=== PATIENT | male | born 1960 | race Caucasian/White ===

== ENCOUNTER 2017-07-05 11:47 | Observation (INO) | payer MEDICARE, OTHER, MEDICAID ==
[~2017-07-05] VITALS: Ht 170.2 cm; Wt 100.2 kg
[~2017-07-05 11:47] MED LIST: ANTIBIOTIC
[2017-07-05] MEDS ORDERED: CIPRO500 MG PO (12:00)
[2017-07-05] MEDS ORDERED: FIBER CHOICE C1.5 G1 PO (12:01)
[2017-07-05 12:59] VITALS: BP 102/70
[2017-07-05] MEDS ORDERED: HYDROCODONE-AP1 EAC6 PO (18:01)
[2017-07-05 18:12] VITALS: BP 102/70
--- NOTE | 2017-07-05 20:11 | OP ---
[facility] [address] [place] [address] OPERATIVE REPORT Name: SANG NORMAN Room: [address] M.R.#: [id number] Admission: 07/05/17 Attend Phys: Gwen Queen MD Discharge: Date of : 58 Report #: [id number] THIS REPORT FOR: //name// CC: Gwen Carrizales MD DATE OF SERVICE: 07/05/2017 PREOPERATIVE DIAGNOSIS: Anal polyp. POSTOPERATIVE DIAGNOSIS: Anal polyp. PROCEDURES: 1. Pouchoscopy. 2. Transanal resection of anal polyp. SURGEON: Gwen Queen M.D. PRODUCTION SUPERVISOR: Hero Sandy DO ESTIMATED BLOOD LOSS: 10 mL COMPLICATIONS: None. FINDINGS: Inflammatory polyp at the left posterolateral location at the level of the dentate, 2 cm in size, long stitch left lateral, short stitch proximal. DESCRIPTION OF PROCEDURE: Full informed consent was obtained preoperatively after full discussion of risks, benefits, alternatives, questions answered. The patient understood risk of bleeding, infection, reoperation, fecal incontinence or stenosis, pouch injury or disruption with leak requiring laparotomy or stoma pathology, which could lead to a need for resection and catastrophic complications up to including cardiopulmonary failure and . She understood and wished to proceed. She was taken to the operating room. We prepped and draped in standard sterile fashion. We began with an examination under anesthesia palpating circumferentially and performed a digital rectal exam and a polyp was palpable at left posterior lateral location. Flexible endoscope was advanced in the rectum. I gently insufflated, I came up. Of note, there was significant inflammatory mucosa circumferentially, only lesion previously noted by Dr. Carrizales was noted. I advanced up to the proximal aspect of the pouch. I viewed the afferent and efferent limb and pulled back. Next, I withdrew my scope. I next placed very small anoscope, viewed the polyp in its entirety and injected 0.5% lidocaine with epinephrine. I made a small wheal. I used cautery to achieve margins around it coming down just above [place] [address] OPERATIVE REPORT Name: SANG NORMAN Room: [address]R.#: [id number] Admission: 07/05/17 Attend Phys: Gwen Queen MD Discharge: Date of : 58 Report #: [id number] sphincter would be. This was resected to be sent to pathology, long stitch was placed with lateral, short stitch proximal. I used 3-0 Vicryl to reapproximate the mucosa into the skin. After this, I made sure it was hemostatic, placed Gelfoam. Sponge, needle, instrument counts were correct. The patient tolerated well. <ELECTRONICALLY SIGNED> By: Gwen Queen MD 07/05/172010 12 1851Dleticia Queen MD /maylin
[2017-07-05 21:00] VITALS: BP 108/72
[2017-07-05 23:55] VITALS: BP 102/68
[2017-07-06 03:38] VITALS: BP 104/70
[2017-07-06 04:39] LABS: ABSOLUTE EOSINOPHILS 0.2 thou/uL (0.0-0.7); ABSOLUTE LYMPHOCYTES 1.1 thou/uL (0.8-5.3); ABSOLUTE MONOCYTES 0.6 thou/uL (0.0-1.2); ABSOLUTE NEUTROPHILS 2.9 thou/uL (1.6-8.1); BASOPHILS 0.8 %; EOSINOPHILS 4.7 %; HEMATOCRIT 35.2 % (42.0-52.0); HEMOGLOBIN 11.5 gm/dL (14.0-18.0); LYMPHOCYTES 22.2 %; MCH 26.9 pg (26.0-34.0); MCHC 32.6 g/dL (28.0-37.0); MCV 82.3 fL (80.0-100.0); MONOCYTES 12.6 %; MPV 9.5 fl. (7.2-11.1); NUCLEATED RBCS 0 /100WBC; PLATELET COUNT* 140 thou/uL (150-400); POLYS 59.7 %; RBC 4.28 mil/uL (4.50-6.00); RDW-CV 16.6 % (10.5-14.5); WBC 4.9 thou/uL (4.0-11.0)
[2017-07-06 04:40] LABS: CALCIUM 8.4 mg/dL (8.5-10.1)
[2017-07-06 07:45] VITALS: BP 111/57
--- NOTE | 2017-07-06 07:57 | NUR ---
PATIENT ALERT AND ORIENTED. VITALS STABLE. ON 4L OF OXYGEN. CONTINUOUS PULSE OX IN PLACE. DENIES PAIN. SCHEDULED TORADOL GIVEN. UP SBA TO BATHROOM. RECTAL DRESSING AND PACKING IN PLACE. SLEPT COMFORTABLY THROUGH THE NIGHT. DENIES ANY DISCOMFORT. HOURLY ROUNDS. BED ALARM IN USE. NURSING WILL CONTINUE TO MONITOR.
[2017-07-06 11:58] VITALS: BP 111/57
--- NOTE | 2017-07-06 12:00 | NUR ---
PT.TO DISCHARGE TODAY. HE LIVES WITH HIS FATHER AND BROTHER. FATHER IS LEGAL GUARDIAN. PAPERWORK ON CHART. FATHER IS HARD OF HEARING SO HE ASKS THAT ANY PHONE CALLS ARE MADE TO BROTHNIKOLAY BABCOCK. HIS MOTHER IS IN LTC AT [facility]. PT.FUNCTIONS ON APPROX.LEVEL OF 7 YEAR OLD. KRISTINA JONES/[facility] CAME TO VISIT PT. HE SAID 'S OFFICE SENT THEM HOME HEALTH ORDERS. NOTIFIED MAT/EDEL [phone] AND FAXED DISCHARGE SUMMARY AND BROTHNIKOLAY BABCOCK'S PHONE NUMBER TO HER AT [phone].
[2017-07-06 12:26] VITALS: BP 111/57
--- NOTE | 2017-07-06 13:03 | NUR ---
PATIENT LEFT UNIT AT 1300. ALERT AND ORIENED X4. UP WITH STAND BY ASSST TO THE BATHROOM. IV DC'D. PAIN BEING MANAGED WITH SCHEDULED TORDOL. DENIES NAUSEA. ALL PERSONAL ITEMS LEFT WITH PATIENT. DISCHARGE INSTRUCTIONS, PRESCRIPTIONS, AND NEW MEDICATION INFORMATION WENT OVER AND COPY SENT WITH PATIENT AND BROTHER. VSS ON ROOM AIR. HOURLY ROUNDS HAVE BEEN MAINTAINED THROUGHOUT SHIFT. LEFT WITH BROTHER VIA CAR.
[2017-07-06 13:18] VITALS: BP 111/57
--- NOTE | 2017-07-09 10:15 | S ---
[place] [address] SURGICAL PATH RPT PROCEDURE Name: OLIVER NORMAN Room: [address] Douglas Alexander#: [id number] Admission: 07/05/17 Date of : 58 Discharge: 07/06/17 Report #: [id number] Path Case #: [id number] PATHOLOGY REPORT COLLECTION DATE: 07/05/2017 RECEIVED DATE: 07/05/2017 SUBMITTING PHYS: Dr. Gwen Queen OTHER PHYS: Dr. Swati Carrizales SPECIMEN(S) RECEIVED: A.Rectal polyp "long suture left lateral short proximal" * * * * * * * * * * * * FINAL DIAGNOSIS: Rectal polyp: - Benign skin and colonic mucosa with prominent pyloric gland metaplasia and moderate chronic inflammation typical of inflammatory polyp, negative for granulomas and dysplasia/adenomatous changes. (SAUD:monique; 07/09/2017) PATHOLOGIST: Roe Lane M.D. REPORT ELECTRONICALLY SIGNED BY: Roe Lane M.D. DATE/TIME: 07/09/2017 10:15 * * * * * * * * * * * * GROSS PATHOLOGY: The specimen is received in formalin labeled "Oliver Norman rectal polyp". Received is an oriented segment of pink-tapia, glistening mucosal-covered tissue measuring 1.9 x 1.3 x 0.9 cm in greatest dimensions with a short suture placed at one aspect designating this as the proximal aspect, which will further be designated as 12:00 margin, and a long suture placed along one edge designating this as the lateral aspect, which will further be designated as the 3:00 margin. The specimen is inked as follows: 12 to 3:00-yellow, 3 to 6:00-blue, and 6 to 12:00-black. The specimen is serially sectioned and placed in cassettes A1 through A3, from 12 to 6:00 aspects. (CAA; 07/06/2017) CLINICAL HISTORY: Inflammatory polyp of anus, ileal pouchitis INITIAL CPT CODE(S): A; 95970 Professional services [place] [address] SURGICAL PATH RPT PROCEDURE Name: OLIVER NORMAN Room: [address] Douglas Zuleta.#: [id number] Admission: 07/05/17 Date of : 58 Discharge: 07/06/17 Report #: [id number] Path Case #: [id number] [address] [place] [address] Technical services performed by [facility] at [address] [place] [address], [facility] [address] [address]. [facility] [address] [place] [address] PHONE: [phone] DIRECTOR: Kiel Farrell M.D. * * * END OF REPORT * * *
== END 2017-07-06 13:00 | disposition home health service (06) ==
LOC: M.SUR 11:47 → M.TBA-ER 19:25 → M.ORTHSURG 19:25
PROVIDERS: ADMIT Surgery
DX: K62.0 Anal polyp (principal); K91.850 Pouchitis

== ENCOUNTER 2017-08-29 19:42 | Inpatient (IN) | payer MEDICARE, OTHER, MEDICAID ==
[~2017-08-29] VITALS: Ht 170.2 cm; Wt 102.1 kg
[~2017-08-29 19:42] MED LIST changes: +CIPRO500 MG PO; +FIBER CHOICE C1.5 G1 PO; +HYDROCODONE-AP1 EAC6 PO
[2017-08-29 20:15] LABS: ABSOLUTE EOSINOPHILS 0.3 thou/uL (0.0-0.7); ABSOLUTE LYMPHOCYTES 1.1 thou/uL (0.8-5.3); ABSOLUTE MONOCYTES 0.6 thou/uL (0.0-1.2); ABSOLUTE NEUTROPHILS 2.7 thou/uL (1.6-8.1); BASOPHILS 0.4 %; EOSINOPHILS 6.7 %; HEMATOCRIT 38.5 % (42.0-52.0); HEMOGLOBIN 12.6 gm/dL (14.0-18.0); LYMPHOCYTES 23.1 %; MCHC 32.6 g/dL (28.0-37.0); MCV 82.9 fL (80.0-100.0); MONOCYTES 12.1 %; MPV 8.9 fl. (7.2-11.1); NUCLEATED RBCS 0 /100WBC; PLATELET COUNT* 140 thou/uL (150-400); POLYS 57.7 %; RBC 4.64 mil/uL (4.50-6.00); RDW-CV 17.2 % (10.5-14.5); WBC 4.8 thou/uL (4.0-11.0)
[2017-08-29 20:18] LABS: ANION GAP 7 mmol/L (7-16); BUN 13 mg/dL (7-18); CALCIUM 8.5 mg/dL (8.5-10.1); CHLORIDE 105 mmol/L (98-107); CO2 28 mmol/L (21-32); CREATININE 1.1 mg/dL (0.6-1.3); GLUCOSE 139 mg/dL (70-99); POTASSIUM 4.3 mmol/L (3.5-5.1); SODIUM 140 mmol/L (136-145)
[2017-08-29 20:34] LABS: ALBUMIN 3.5 g/dL (3.4-5.0); ALKALINE PHOSPHATASE 127 U/L (46-116); NT-PRO BRAIN NAT PEPTIDE 280 pg/mL (<300); SGOT 25 U/L (15-37); SGPT 29 U/L (30-65); TOTAL BILIRUBIN 0.5 mg/dL (<0.1-1.0); TOTAL PROTEIN 7.6 g/dL (6.4-8.2); TROPONIN-I LEVEL <0.06 ng/mL (<0.06)
[2017-08-29 22:02] LABS: HCO3 23.7 mmol/L (22.0-26.0); PCO2 39.4 mmHg (35.0-45.0); PO2 76.9 mmHg (75.0-100.0); pH 7.397 (7.340-7.450)
[2017-08-29 23:00] LABS: INFLUENZA A ANTIGEN None Detected (None Detect); INFLUENZA B ANTIGEN None Detected (None Detect)
[2017-08-30 04:00] VITALS: BP 126/80
[2017-08-30 04:57] LABS: HEMATOCRIT 36.8 % (42.0-52.0); HEMOGLOBIN 12.2 gm/dL (14.0-18.0); MCH 27.1 pg (26.0-34.0); MCHC 33.1 g/dL (28.0-37.0); MCV 81.8 fL (80.0-100.0); MPV 8.9 fl. (7.2-11.1); RBC 4.51 mil/uL (4.50-6.00); RDW-CV 16.7 % (10.5-14.5)
--- NOTE | 2017-08-30 05:10 | NUR ---
PT TO FLOOR 0145. A&O X4, PT HAS GAURDIAN, PT HAS CRACKES ON PALM OF FEET. REPORTED THAT PT HAS COGNITIVE ISSUES AND DEVELPMENTLY SLOW (AGE 10-12). 6L O2. PT IS STAND BY ASSIST. HX FALLS. PT WHERES PULL UP AND IS CONTENT. VITALS WNL. SEE MAR. SEE CHARTING. FALL PRECATUIONS IN PLACE. HOURLY ROUNDING FOR SAFETY.
[2017-08-30 05:54] LABS: ALBUMIN 3.5 g/dL (3.4-5.0); CALCIUM 8.7 mg/dL (8.5-10.1); POTASSIUM 4.6 mmol/L (3.5-5.1); TOTAL BILIRUBIN 0.5 mg/dL (<0.1-1.0); TOTAL PROTEIN 7.1 g/dL (6.4-8.2)
[2017-08-30 07:45] VITALS: BP 135/65
[2017-08-30 11:54] VITALS: BP 131/73
--- NOTE | 2017-08-30 15:25 | EKG ---
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 : 1960 Requested By: Albin Yanez Order Number: [id number] Reading MD: Max Dang Measurements Intervals [place] Rate: 82 P: -3 MS: 192 QRS: -36 QRSD: 103 T: 13 QT: 394 QTc: 461 Interpretive Statements Sinus rhythm Atrial premature complexes Left axis deviation Low voltage, precordial leads No previous ECG available for comparison Electronically Signed On 08-30-2017 15:25:33 CDT by Max Dang [email or web address] <ELECTRONICALLY SIGNED> By: Max Dang MD, [facility] 08/30/17 1525 1222 1222 Max Dang MD, [facility] /EPI
[2017-08-30 16:00] VITALS: BP 101/64
--- NOTE | 2017-08-30 16:16 | NUR ---
CM SPOKE TO THE PATIENT TO DISCUSS HOME SITUATION, DISCHARGE PLANNING, AND TO INFORM OF THE ROLE OF CM. PATIENT ALERT, AND ORIENTED. PATIENT RESIDES AT HOME WITH BROTHER AND FATHER. PATIENTS FATHER IS [place] [place]. PATIENTS BROTHER INFORMS THAT HE SHOULD BE CONTACTED WITH ANY UPDATES HIS FATHER IS UNABLE TO HEAR VERY WELL ON THE PHONE. PATIENT USES 0 DME. PATIENT HAS A HH HX WITH [facility]. GUARDIAN AND DPOA PAPERWORK IS ON THE CHART. CM WILL REMAIN AVAILABLE TO ASSIST AND FOLLOW NEEDED.
--- NOTE | 2017-08-30 16:58 | 2DMMODE ---
[place] [address] 2 D/M-MODE ECHOCARDIOGRAM Name: SANG NORMAN Room: [address] IN [facility]#: [id number] Admission: 08/29/17 Attend Phys: Albin Yanez, Discharge: Date of : 58 Date of Service: 08/30/17 1658 Report #: [id number] THIS REPORT FOR: //name// APPROVED REPORT Study performed: 08/30/2017 14:34:13 EXAM: Comprehensive 2D, Doppler, and color-flow Echocardiogram Patient Location: In-Patient Room #: [facility] Status: routine BSA: 2.15 HR: 86 bpm BP: 135/65 mmHg Rhythm: NSR Other Information Study Quality: Fair Indications Dyspnea 2D Dimensions IVSd: 12.72 (7-11mm) LVOT Diam: 21.12 (18-24mm) LVDd: 46.78 mm PWd: 10.08 (7-11mm) LVDs: 22.81 (25-40mm) Aortic Root: 43.09 mm Volumes Left Atrial Volume (Systole) LA ESV Index: 15.20 mL/m2 Aortic Valve AoV Peak Giovany.: 1.73 m/s AO Peak Gr.: 11.91 mmHg LVOT Max P.87 mmHg AO Mean Gr.: 5.72 mmHg LVOT Mean P.73 mmHg LVOT Max V: 1.40 m/s AO V2 VTI: 28.92 cm LVOT Mean V: 0.88 m/s TIERA (VTI): 3.13 cm2 LVOT V1 VTI: 25.84 cm Mitral Valve E/A Ratio: 1.07 MV Decel. Time: 217.55 ms MV E Max Giovany.: 0.77 m/[place] [address] 2 D/M-MODE ECHOCARDIOGRAM Name: SANG NORMAN Room: [address] IN [facility]#: [id number] Admission: 08/29/17 Attend Phys: Albin Yanez, Discharge: Date of : 58 Date of Service: 08/30/17 1658 Report #: [id number] MV PHT: 63.09 ms MVA (PHT): 3.49 cm2 TDI E/Lateral E': 5.13 E/Medial E': 7.00 Medial E' Giovany.: 0.11 m/s Lateral E' Giovany.: 0.15 m/s Pulmonary Valve PV Peak Giovany.: 1.23 m/s PV Peak Gr.: 6.10 mmHg Tricuspid Valve TR Peak Gr.: 25.49 mmHg RVSP: 30.00 mmHg Left Ventricle The left ventricle is normal size. There is normal LV segmental wall motion. There is normal left ventricular wall thickness. Left ventricular systolic function is normal. The left ventricular ejection fraction is within the normal range. LVEF is 55-60%. The left ventricular diastolic function is normal. Right Ventricle The right ventricle is normal size. The right ventricular systolic function is normal. Atria The left atrium size is normal. The right atrium size is normal. Aortic Valve The aortic valve is normal in structure. Trace aortic regurgitation. There is no aortic valvular stenosis. Mitral Valve The mitral valve is normal in structure. There is no mitral valve regurgitation noted. No evidence of mitral valve stenosis. Tricuspid Valve The tricuspid valve is normal in structure. Trace tricuspid regurgitation. The RVSP is 30-35 mmHg. Pulmonic Valve The pulmonary valve is normal in structure. There is no pulmonic valvular regurgitation[place] [address] 2 D/M-MODE ECHOCARDIOGRAM Name: SANG NORMAN Room: [address] IN [facility]#: [id number] Admission: 08/29/17 Attend Phys: Albin Yanez, Discharge: Date of : 58 Date of Service: 08/30/17 1658 Report #: [id number] Aortic root is mildly dilated. IVC is normal in size and collapses with >50% inspiration Pericardium There is no pericardial effusion. <Conclusion> Left ventricular systolic function is normal. The left ventricular ejection fraction is within the normal range. <ELECTRONICALLY SIGNED> By: Max Dang MD, FACC 08/30/171657 57 57 Max Dang MD, FACC /INF
--- NOTE | 2017-08-30 18:05 | NUR ---
ASSUMED CARE OF PATIENT AFTER MORNING REPORT. ALERT AND ORIENTED X4. ASSESSMENT COMPLETED AND CHARTED. VSS ON 2 LITERS 02. PATIENT HAS DEVELOPMENTAL DALAYS BUT COMMUNICATES VERY WELL AND UNDERSTANDS WHY HE IS HERE. PATIENT HAS HAD NO COMPLAINTS OF PAIN OR NAUSEA THIS SHIFT. ANTIBIOTICS AND STEROIDS INFUSED ORDERED. BREATHING TREATMENTS ADMINISTERED BY RT TODAY. PATIENT IS RESTING COMFORTABLY IN BED AT THIS TIME. HOURLY ROUNDS MAINTAINED. CALL LIGHT WITHIN REACH. NURSING WILL CONTINUE TO MONITOR.
[2017-08-30 20:00] VITALS: BP 119/70
[2017-08-31] VITALS: BP 121/56
[2017-08-31 04:00] VITALS: BP 100/67
--- NOTE | 2017-08-31 04:31 | NUR ---
A&O X4 CALM COOPERITVE. 5L O2. SR PAC ON THE MONITOR. STAND BY ASSIT. VITALS WNL. SEE MAR. SEE CHARTING. FALL PRECAUITONS IN PLACE. HOURLY ROUNDING FOR SAFETY.
[2017-08-31 05:43] LABS: HEMATOCRIT 35.4 % (42.0-52.0); HEMOGLOBIN 11.5 gm/dL (14.0-18.0); MCH 26.9 pg (26.0-34.0); MCHC 32.6 g/dL (28.0-37.0); MCV 82.5 fL (80.0-100.0); MPV 9.1 fl. (7.2-11.1); RBC 4.29 mil/uL (4.50-6.00); RDW-CV 17.1 % (10.5-14.5)
[2017-08-31 06:16] LABS: CALCIUM 8.8 mg/dL (8.5-10.1); POTASSIUM 4.4 mmol/L (3.5-5.1)
[2017-08-31 08:00] VITALS: BP 118/54
[2017-08-31 12:00] VITALS: BP 110/56
[2017-08-31 16:31] VITALS: BP 114/52
--- NOTE | 2017-08-31 19:02 | NUR ---
PATINET RESTING IN BED. UP IN ROOM AD EWA, STEADY GAIT. PAITENT IS APPROPRIATE. OXYGEN HAS BEEN REDUCED TO ROOM AIR AND PAITNET IS MAINTAINING O2 SATRATION OF GREATER THAN 90 PERCENT. VITAL SIGNS STABLE AND PAITNET IS PROGRESSING TOWARDS GOALS. HOURLY ROUNDING COMPLETED FOR PATINET SAFETY.
[2017-08-31 20:00] VITALS: BP 118/57; BP 119/47
[2017-09-01 00:41] VITALS: BP 126/66
[2017-09-01 02:07] LABS: GLYCOHEMOGLOBIN (HGB A1C) 6.5 % (4.8-5.6)
--- NOTE | 2017-09-01 03:58 | NUR ---
PT ALERT ORIENTED. TELEMETRY SHOWS SR PACS. O2 AT 2 LITERS NC. DENIES PAIN. WILL CONTINUE TO MONITOR.
[2017-09-01 04:00] VITALS: BP 116/69
[2017-09-01 05:48] LABS: HEMATOCRIT 35.5 % (42.0-52.0); HEMOGLOBIN 11.6 gm/dL (14.0-18.0); MCH 26.6 pg (26.0-34.0); MCHC 32.5 g/dL (28.0-37.0); MCV 81.8 fL (80.0-100.0); MPV 8.7 fl. (7.2-11.1); RBC 4.34 mil/uL (4.50-6.00); RDW-CV 17.4 % (10.5-14.5); WBC 7.8 thou/uL (4.0-11.0)
[2017-09-01 06:16] LABS: CALCIUM 8.8 mg/dL (8.5-10.1); CREATININE 1.1 mg/dL (0.6-1.3); POTASSIUM 4.6 mmol/L (3.5-5.1)
[2017-09-01 08:21] VITALS: BP 126/66
--- NOTE | 2017-09-01 11:42 | NUR ---
AMBULATED PT IN HALLS ON RA. SATS 95% DENIES SOA
[2017-09-01 12:11] VITALS: BP 124/60
--- NOTE | 2017-09-01 16:24 | NUR ---
PT UP IN ROOM WITH STEADY GAIT. PT ON RA-SATS IN UPPER 90S. PT AMBULATED ENTIRE UNIT TODAY.GOOD APPETITE.
[2017-09-01 16:52] VITALS: BP 126/46
[2017-09-01 20:00] VITALS: BP 119/70
[2017-09-02] VITALS: BP 101/56
[2017-09-02 03:59] VITALS: BP 90/62
--- NOTE | 2017-09-02 04:23 | NUR ---
PT ALERT ORIENTED. UP STAND BY ASSIST. TELEMETRY SHOWS SR PACS. ON RA. WILL CONTINUE TO MONITOR.
[2017-09-02 08:00] VITALS: BP 117/54
[2017-09-02 11:30] VITALS: BP 107/62
--- NOTE | 2017-09-02 20:29 | NUR ---
I ASSUMED CARE OF THE PATIENT AT 0700. HE IS ALERT AND ORIENTED X4 AND IS UP AD EWA AND ENJOYS WALKING THE HALLS. BED IS IN THE LOW LOCKED POSITION AND CALL LIGHT IS IN REACH. HE IS PROGRESSING TOWARD GOALS, BUT STILL NEEDS MORE THERAPY. HOURLY ROUNDING WAS COMPLETED AND PATIENT NEEDS WERE MET. PAIN IS DENIED. DISCHARGE IS EXPECTED SUNDAY. PATIENT IS ABLE TO COMPLETED DAILY ADL'S INDEPENDENTLY. HE HAS BEEN TOWNGRADED TO MED.SURG STATUS. HE USES THE RESTROOM INDEPENDENTLY AND WEARS DEPENDS. MOTHER IS AT [facility] AND HE IS CONCERNED ABOUT HER. WILL CONTINUE TO MONITOR.
[2017-09-03] VITALS: BP 126/63
--- NOTE | 2017-09-03 03:51 | NUR ---
ASSUMED CARE OF PT AT 1930, NURSING ASSESSMENT COMPLETED AT START OF SHIFT. PT MED SURG STATUS. VSS, AAOX4, VOICED NO CONCERNS THIS SHIFT. HOURLY ROUNDING COMPLETED, CALL LIGHT WITHIN REACH. NO FALLS THIS SHIFT.
[2017-09-03 08:00] VITALS: BP 115/75
[2017-09-03] MEDS ORDERED: MEDROLDOSEPACK PO (09:48)
[2017-09-03] MEDS ORDERED: CEFDINIR300 MG PO (09:48)
[2017-09-03] MEDS ORDERED: GLUCOPHAGE500 MG PO (09:48)
[2017-09-03] MEDS ORDERED: VENTOLIN HFA 1818 GM INH (09:48)
[2017-09-03] MEDS ORDERED: AZITHROMYCIN 2250 MG PO (09:48)
[2017-09-03 10:32] VITALS: BP 126/63
[2017-09-03 11:57] VITALS: BP 120/68
--- NOTE | 2017-09-03 13:17 | NUR ---
ASSUMED CARE OF PATIENT THIS AM AT 0730. PATIENT IS ALERT AND ORIENTED X 4 THIS AM. HE DENIES PAIN AND DISCOMFORT. PATIENT CONTINUES TO HAVE MILD EXPIRATORY WHEEZES. PATIENT HAS BEEN UP IN THE HALLS TODAY. DR ALEX IN TO ROUND AND DISCHARGE ORDERS WRITTEN. PATIENT AND GUARDIAN GIVEN DISCHARGE INSTRUCTIONS. CARENOTE, PRESCRIPTIONS AND FOLLOWUP INSTRUCTIONS GIVEN TO THE PATIENT. SALINE LOCK DISCONTINUED. GUARDIAN VERBALIZED UNDERSTANDING OF FOLLOWUP INSTRUCTIONS. PATIENT DISCHARGED TO HOME PER W/C WITH BELONGINGS.
== END 2017-09-03 13:13 | disposition home or self-care (01) | DRG 177 ==
LOC: M.ERS 19:42 → M.2W 23:38 → M.TBA-ER 23:38 → M.2W 08-30 01:22
PROVIDERS: Emergency Medicine; Internal Medicine; ADMIT Internal Medicine
DX: J15.6 Pneumonia due to other Gram-negative bacteria (principal); J96.01 Acute respiratory failure with hypoxia; J84.9 Interstitial pulmonary disease, unspecified; R65.10 Systemic inflammatory response syndrome (SIRS) of non-infectious origin without acute organ dysfunction; J84.89 Other specified interstitial pulmonary diseases; J98.01 Acute bronchospasm; J45.909 Unspecified asthma, uncomplicated; Z77.098 Contact with and (suspected) exposure to other hazardous, chiefly nonmedicinal, chemicals; Z96.652 Presence of left artificial knee joint; Z90.49 Acquired absence of other specified parts of digestive tract; Z93.2 Ileostomy status; Z88.2 Allergy status to sulfonamides; Z88.8 Allergy status to other drugs, medicaments and biological substances

== ENCOUNTER 2018-07-21 17:12 | Inpatient (IN) | payer MEDICARE, OTHER, MEDICAID ==
[~2018-07-21] VITALS: Ht 165.1 cm; Wt 101.2 kg
[~2018-07-21 17:12] MED LIST changes: +AZITHROMYCIN 2250 MG PO; +CEFDINIR300 MG PO; +GLUCOPHAGE500 MG PO; +MEDROLDOSEPACK PO; +VENTOLIN HFA 1818 GM INH
[2018-07-21 17:13] VITALS: BP 132/80
[2018-07-21 18:24] LABS: ABSOLUTE EOSINOPHILS 0.1 thou/uL (0.0-0.7); ABSOLUTE MONOCYTES 0.6 thou/uL (0.0-1.2); ABSOLUTE NEUTROPHILS 6.1 thou/uL (1.6-8.1); BASOPHILS 0.6 %; EOSINOPHILS 1.4 %; HEMATOCRIT 37.8 % (42.0-52.0); HEMOGLOBIN 12.2 gm/dL (14.0-18.0); MCH 27.3 pg (26.0-34.0); MCHC 32.2 g/dL (28.0-37.0); MONOCYTES 7.2 %; MPV 8.2 fl. (7.2-11.1); NUCLEATED RBCS 0 /100WBC; PLATELET COUNT* 250 thou/uL (150-400); POLYS 77.8 %; RBC 4.45 mil/uL (4.50-6.00); RDW-CV 15.6 % (10.5-14.5); WBC 7.9 thou/uL (4.0-11.0)
[2018-07-21 18:36] LABS: INR 1.1; PROTIME 11.2 Seconds (9.20-11.50)
[2018-07-21 18:49] LABS: CALCIUM 8.5 mg/dL (8.5-10.1); TOTAL BILIRUBIN 0.4 mg/dL (<0.1-1.0); TOTAL PROTEIN 7.3 g/dL (6.4-8.2)
[2018-07-21 19:52] VITALS: BP 132/68
[2018-07-21 20:30] VITALS: BP 119/47
[2018-07-22 04:52] LABS: CALCIUM 8.7 mg/dL (8.5-10.1); POTASSIUM 4.4 mmol/L (3.5-5.1)
[2018-07-22 05:00] LABS: HEMATOCRIT 33.6 % (42.0-52.0); HEMOGLOBIN 10.9 gm/dL (14.0-18.0); MCH 27.2 pg (26.0-34.0); MCHC 32.5 g/dL (28.0-37.0); MCV 83.6 fL (80.0-100.0); MPV 8.7 fl. (7.2-11.1); NUCLEATED RBCS 0 /100WBC; PLATELET COUNT* 268 thou/uL (150-400); RBC 4.02 mil/uL (4.50-6.00); RDW-CV 15.5 % (10.5-14.5); WBC 8.7 thou/uL (4.0-11.0)
[2018-07-22 07:06] LABS: ABSOLUTE LYMPHOCYTES 0.4 thou/uL (0.8-5.3); ABSOLUTE MONOCYTES 0.5 thou/uL (0.0-1.2); ABSOLUTE NEUTROPHILS 7.7 thou/uL (1.6-8.1); ANISOCYTOSIS 1+; PLATELET ESTIMATE ADEQUATE; POIKILOCYTOSIS 1+
[2018-07-22 09:20] VITALS: BP 124/76
[2018-07-22 11:10] VITALS: BP 124/76
[2018-07-22 15:37] LABS: HEMATOCRIT 32.1 % (42.0-52.0); HEMOGLOBIN 10.3 gm/dL (14.0-18.0)
--- NOTE | 2018-07-22 16:06 | EKG ---
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 : 1960 Requested By: Fernando Wynne Order Number: [id number] MD: Gabriele Hoyt Measurements Intervals [place] Rate: 75 P: -13 GA: 194 QRS: -23 QRSD: 208 T: 6 QT: 448 QTc: 501 Interpretive Statements Sinus rhythm Supraventricular bigeminy Nonspecific intraventricular conduction delay Compared to ECG 08/30/2017 12:22:38 Intraventricular conduction delay now present Left-axis deviation no longer present Electronically Signed On 07-22-2018 16:05:50 GEOLOGY TEACHER by Gabriele Hoyt [email or web address] <ELECTRONICALLY SIGNED> By: Gabriele Hoyt MD, [facility] 07/22/18 1605 1733 1733 Gabriele Hoyt MD, [facility] /EPI
[2018-07-22 20:40] VITALS: BP 102/57
[2018-07-23] VITALS: BP 102/52
[2018-07-23 04:00] VITALS: BP 92/59
--- NOTE | 2018-07-23 10:54 | OP ---
[address] [address] OPERATIVE REPORT Name: NORMANSANG Martita Room: [address] IN .R.#: [id number] Admission: 07/21/18 Attend Phys: Albin Yanez MD Discharge: Date of : 58 Report #: [id number] THIS REPORT FOR: //name// CC: Albin Wua Aixa DATE OF SERVICE: 07/22/2018 PREOPERATIVE DIAGNOSIS: Left subtrochanteric femur fracture, displaced, closed. POSTOPERATIVE DIAGNOSIS: Left subtrochanteric femur fracture, displaced, closed. SURGERY PERFORMED: Wall intramedullary long gamma nail of the left femur. SURGEON: Siddhartha Asencio DO IRRIGATOR GRAVITY FLOW: Dr. Marcelo. ANESTHESIA: General anesthetic. ANTIBIOTICS: The patient did receive Ancef 2 grams IV piggyback preoperatively. DRAINS: None. COMPLICATIONS: None. SPECIMENS: None. ESTIMATED BLOOD LOSS: 200 mL. GROSS FINDINGS: Prior to surgery, his x-ray demonstrated a displaced fracture from a slip and a fall on the snow. Post-reduction on the Latty table demonstrated a good reduction AP and lateral views. It was noted the patient did have a left total knee in place as well. The patient's post-placement of the intramedullary nail demonstrated near anatomic reduction AP and lateral views. DESCRIPTION OF PROCEDURE: This gentleman was taken to the operating room and given the benefit of general anesthetic and then transferred over to the Latty fracture table. At this point in time, using a C-arm, the fracture was reduced verifying it with AP and lateral views. Next, he underwent a chlorhexidine prep and sterile draping for left femur surgery. Timeout was called and verified for the left. Surgery began with a curvilinear incision just proximal to the greater trochanter for approximately 5 cm through skin, subcutaneous tissues and the tensor. Starting guidewire was placed in [place] [address] OPERATIVE REPORT Name: KAYY NORMANRY Martita Room: [address] IN [facility].#: [id number] Admission: 07/21/18 Attend Phys: Albin Yanez MD Discharge: Date of : 58 Report #: [id number] placed into the trochanteric region. X-ray was taken verifying the position and the opening reamer was next placed over it and drilled. Once this was accomplished, it passed the guidewire proximal to distal and measured the length that we wanted for a long gamma nail, 380 was selected x 12 x 125. Surgery now continued at this point in time with the reaming 11, 13 and 15.5 mm with the lateral one being only to the proximal opening area of the nail. Once this was accomplished, the nail was placed over the guidewire into appropriate position. The guidewire was removed. Next, the lag screw was appropriately drilled through the sleeve. It went through a small stab incision through the skin, it was measured. I selected and reamed a 95 mm lag screw. It was placed without difficulty and the set screw was now placed as well locking into the lag screw. Once this was accomplished, the proximal guide was now removed. Surgery continued with doing perfect circles for fixed drilling for the distal two holes of the IM nail. A small stab incision was made again appropriately. The drills were placed too parallel in nature and measured. The two distal screw lengths were measured. They were placed. X-ray verified the anatomic placement of these through the nail. The patient did have copious irrigation across all surgical sites next. The proximal tensor was closed with 0 Vicryl in a bcirza-az-xstpi fashion, subcutaneous tissues with 2-0 Vicryl inverted simple fashion and stapled to skin. The other two small incisions were closed with 2-0 Vicryl and bogdan. A sterile Xeroform appropriate for compression dressing was placed across the leg. He was transferred from the operative table and taken to recovery in stable condition. I attest I was present for all critical aspects of the surgery. The needle, instrument and sponge counts were correct. <ELECTRONICALLY SIGNED> By: Siddhartha Asencio DO 07/23/18 1054 1447 [email or web address] Asencio DO /nt
--- NOTE | 2018-07-23 12:56 | EKG ---
[place] [address] ELECTROCARDIOGRAM REPORT Name: SANG NORMAN Room: [address] ADM IN M.R.#: [id number] Admission: 07/21/18 Attend Phys: Albin Yanez MD Discharge: Date of : 58 Report #: [id number] THIS REPORT FOR: //name// [facility] Test Date: 2018-07-23 Test Time: 01:18:26 Pat Name: SANG NORMAN Department: Room: [address] Gender: Bell Tier: : 1960 Requested By: Albin Yanez Order Number: [id number] Reading MD: Gabriele Hoyt Measurements Intervals [place] Rate: 81 P: DC: QRS: -28 QRSD: 98 T: 12 QT: 400 QTc: 465 Interpretive Statements Sinus rhythm with bigeminal pac's Borderline left axis deviation Low voltage, precordial leads Compared to ECG 07/21/2018 17:33:24 Low QRS voltage now present Electronically Signed On 07-23-2018 12:55:50 MOLD YARN SUPERVISOR by Gabriele Hoyt [email or web address] <ELECTRONICALLY SIGNED> By: Gabriele Hoyt MD, [facility] 07/23/18 1255 0118 0118 Gabriele Hoyt MD, [facility] /EPI
[2018-07-23 17:51] VITALS: BP 101/50
[2018-07-24 04:19] VITALS: BP 114/69
[2018-07-24 04:26] LABS: CALCIUM 8.3 mg/dL (8.5-10.1); CREATININE 0.9 mg/dL (0.6-1.3); POTASSIUM 3.8 mmol/L (3.5-5.1)
[2018-07-24 04:29] LABS: ABSOLUTE BASOPHILS 0.1 thou/uL (0.0-0.2); ABSOLUTE EOSINOPHILS 0.2 thou/uL (0.0-0.7); ABSOLUTE LYMPHOCYTES 0.8 thou/uL (0.8-5.3); ABSOLUTE MONOCYTES 0.8 thou/uL (0.0-1.2); ABSOLUTE NEUTROPHILS 5.9 thou/uL (1.6-8.1); BASOPHILS 0.7 %; EOSINOPHILS 2.1 %; HEMATOCRIT 26.8 % (42.0-52.0); HEMOGLOBIN 8.8 gm/dL (14.0-18.0); LYMPHOCYTES 10.3 %; MCH 27.9 pg (26.0-34.0); MCHC 33.1 g/dL (28.0-37.0); MCV 84.4 fL (80.0-100.0); MONOCYTES 10.2 %; MPV 8.7 fl. (7.2-11.1); NUCLEATED RBCS 0 /100WBC; PLATELET COUNT* 232 thou/uL (150-400); POLYS 76.7 %; RBC 3.17 mil/uL (4.50-6.00); RDW-CV 15.6 % (10.5-14.5); WBC 7.6 thou/uL (4.0-11.0)
[2018-07-24] MEDS ORDERED: ASPIRIN325 PO (08:50)
[2018-07-24] MEDS ORDERED: HYDROCODON-ACE1 EAC7 PO (08:50)
[2018-07-24] MEDS ORDERED: XARELTO10 MG PO (08:50)
[2018-07-24] MEDS ORDERED: OXYCODONE HCL 55 MG PO (08:50)
[2018-07-24] MEDS ORDERED: MIRALAX17 GM PO (08:50)
[2018-07-24] MEDS ORDERED: COLACE 100 MG100 MG PO (08:50)
[2018-07-24] MEDS ORDERED: IBUPROFEN 200200 M1 PO (08:53)
[2018-07-24 16:00] VITALS: BP 118/69
[2018-07-24 20:45] VITALS: BP 107/61
[2018-07-25 08:00] VITALS: BP 112/67
[2018-07-25 16:34] VITALS: BP 116/78
[2018-07-25 20:45] VITALS: BP 95/42
[2018-07-26 03:34] VITALS: BP 114/64
[2018-07-26 03:58] LABS: ABSOLUTE EOSINOPHILS 0.1 thou/uL (0.0-0.7); ABSOLUTE LYMPHOCYTES 0.5 thou/uL (0.8-5.3); ABSOLUTE MONOCYTES 0.8 thou/uL (0.0-1.2); ABSOLUTE NEUTROPHILS 2.7 thou/uL (1.6-8.1); BASOPHILS 0.5 %; EOSINOPHILS 2.8 %; HEMATOCRIT 28.9 % (42.0-52.0); HEMOGLOBIN 9.5 gm/dL (14.0-18.0); LYMPHOCYTES 12.4 %; MCH 27.7 pg (26.0-34.0); MCHC 32.9 g/dL (28.0-37.0); MCV 84.3 fL (80.0-100.0); MONOCYTES 19.6 %; MPV 8.4 fl. (7.2-11.1); NUCLEATED RBCS 0 /100WBC; PLATELET COUNT* 281 thou/uL (150-400); POLYS 64.7 %; RBC 3.43 mil/uL (4.50-6.00); RDW-CV 15.9 % (10.5-14.5); WBC 4.2 thou/uL (4.0-11.0)
[2018-07-26 04:17] LABS: CALCIUM 8.9 mg/dL (8.5-10.1); MAGNESIUM 1.9 mg/dL (1.8-2.4); PHOSPHORUS* 4.1 mg/dL (2.5-4.9); POTASSIUM 4.1 mmol/L (3.5-5.1)
[2018-07-26 08:25] VITALS: BP 120/68
[2018-07-26 16:00] VITALS: BP 102/62
[2018-07-27] VITALS: BP 119/65
[2018-07-27 04:46] LABS: ABSOLUTE LYMPHOCYTES 0.6 thou/uL (0.8-5.3); ABSOLUTE NEUTROPHILS 2.3 thou/uL (1.6-8.1); HEMOGLOBIN 8.8 gm/dL (14.0-18.0); MPV 8.8 fl. (7.2-11.1)
[2018-07-27 04:49] LABS: ABSOLUTE EOSINOPHILS 0.1 thou/uL (0.0-0.7); ABSOLUTE MONOCYTES 0.7 thou/uL (0.0-1.2); EOSINOPHILS 3.4 %; HEMATOCRIT 26.9 % (42.0-52.0); MCH 27.7 pg (26.0-34.0); MCHC 32.6 g/dL (28.0-37.0); NUCLEATED RBCS 0 /100WBC; PLATELET COUNT* 257 thou/uL (150-400); POLYS 61.6 %; RBC 3.16 mil/uL (4.50-6.00); RDW-CV 16.2 % (10.5-14.5); WBC 3.7 thou/uL (4.0-11.0)
[2018-07-27 05:07] LABS: CALCIUM 8.3 mg/dL (8.5-10.1); MAGNESIUM 1.9 mg/dL (1.8-2.4)
[2018-07-27 07:30] VITALS: BP 104/49
[2018-07-27 15:30] VITALS: BP 113/63
[2018-07-28 01:14] VITALS: BP 120/59
[2018-07-28 08:05] VITALS: BP 111/70
[2018-07-28 17:18] VITALS: BP 124/65
[2018-07-29] VITALS: BP 102/52
[2018-07-29 04:28] LABS: HEMATOCRIT 26.9 % (42.0-52.0); MCH 28.3 pg (26.0-34.0); MCHC 33.6 g/dL (28.0-37.0); MCV 84.4 fL (80.0-100.0); MPV 8.8 fl. (7.2-11.1); RBC 3.19 mil/uL (4.50-6.00); RDW-CV 15.7 % (10.5-14.5)
[2018-07-29 05:04] LABS: CALCIUM 8.2 mg/dL (8.5-10.1); CREATININE 0.9 mg/dL (0.6-1.3); MAGNESIUM 1.8 mg/dL (1.8-2.4); POTASSIUM 3.6 mmol/L (3.5-5.1)
[2018-07-29 08:10] VITALS: BP 116/61
[2018-07-29 15:35] VITALS: BP 118/73
[2018-07-29 19:45] VITALS: BP 106/54
[2018-07-30 08:55] VITALS: BP 108/68
[2018-07-30 17:23] VITALS: BP 126/69
[2018-07-30 21:30] VITALS: BP 121/64
[2018-07-31 09:15] VITALS: BP 111/63
[2018-07-31 16:00] VITALS: BP 109/61
[2018-07-31 20:40] VITALS: BP 101/59
[2018-08-01 08:10] VITALS: BP 118/69
[2018-08-01] MEDS ORDERED: XARELTO10 MG PO (09:59)
[2018-08-01] MEDS ORDERED: METAMUCIL PACK3.4 GM PO (09:59)
[2018-08-01] MEDS ORDERED: FIBERCON CHEWA625 MG PO (09:59)
[2018-08-01] MEDS ORDERED: REGLAN 10 MG TA10 MG PO (09:59)
[2018-08-01] MEDS ORDERED: GAS RELIEF80 MG PO (09:59)
[2018-08-01 16:32] VITALS: BP 111/57
[2018-08-01 16:39] VITALS: BP 111/57
== END 2018-08-01 19:42 | DRG 481 ==
LOC: M.ERS 17:12 → M.TBA-ER 18:10 → M.3W 18:10
PROVIDERS: Emergency Medicine; Family Medicine; Orthopaedic Surgery; Surgery; ADMIT Internal Medicine
PROC: 0QS704Z Reposition Left Upper Femur with Internal Fixation Device, Open Approach (ICD-10-PCS; principal; 2018-07-22)
DX: S72.22XA Displaced subtrochanteric fracture of left femur, initial encounter for closed fracture (principal); D62 Acute posthemorrhagic anemia; K91.30 Postprocedural intestinal obstruction, unspecified as to partial versus complete; Z96.652 Presence of left artificial knee joint; Z90.49 Acquired absence of other specified parts of digestive tract; Z93.2 Ileostomy status; Z88.2 Allergy status to sulfonamides; Z88.8 Allergy status to other drugs, medicaments and biological substances; W01.0XXA Fall on same level from slipping, tripping and stumbling without subsequent striking against object, initial encounter; Y93.H1 Activity, digging, shoveling and raking; Y92.89 Other specified places as the place of occurrence of the external cause; Y99.8 Other external cause status

== ENCOUNTER 2018-08-01 17:52 | Inpatient (IN) | payer MEDICARE, OTHER, MEDICAID ==
[~2018-08-01] VITALS: Ht 165.1 cm; Wt 94.3 kg
--- NOTE | ~2018-08-01 | H ---
[facility] [address] [place] [address] HISTORY AND PHYSICAL Name: NORMANSANG Martita Room: [address] IN [facility].#: [id number] Admission: 08/01/18 Attend Phys: Anupama Clements DO Discharge: Date of : 58 Report #: [id number] THIS REPORT FOR: //name// CC: Swati Clements DATE OF SERVICE: 08/01/2018 HISTORY OF PRESENT ILLNESS: This is a 58-year-old male admitted to inpatient rehabilitation to facilitate safe discharge home, status post acute hospitalization following surgical intervention. He has been followed by this physician in consultation until this time with no significant changes. He does have continued impairment of cognition, PT and OT. No significant changes since the preadmission screening. This is a hip fracture with hip precautions as well as developmental delay with Down syndrome. He does have supportive father and brother. PREVIOUS LEVEL OF FUNCTION: Modified independent to independent with activities of daily living. CURRENT LEVEL OF FUNCTION: Minimum to moderate assistance of 1-2 depending on therapy, activity and time of day. He also has mild impairment of cognitive impression, expression, social interaction, problem solving. Ambulating 100 feet with front-wheeled walker. PAST MEDICAL HISTORY: Unchanged from previous. PAST SURGICAL HISTORY: Unchanged from previous. MEDICATIONS: Have been reviewed, reconciled by myself and are available in the MAR. ALLERGIES: INCLUDE PREDNISONE AND SULFA. PAST FAMILY HISTORY: Unchanged. PAST SOCIAL HISTORY: Unchanged. REVIEW OF SYSTEMS: A 14-point review of systems is done and is negative except as mentioned in the HPI, specifically no fever, chest pain, shortness of breath, abdominal pain or distention, change in bowel or change in bladder. PHYSICAL EXAMINATION: GENERAL: Alert, oriented, in no apparent distress. VITAL SIGNS: [place] [address] HISTORY AND PHYSICAL Name: SANG NORMAN Room: [address] IN [facility].#: [id number] Admission: 08/01/18 Attend Phys: Anupama Clements DO Discharge: Date of : 58 Report #: [id number] HEENT: Head atraumatic, normocephalic. Pupils equal, round, reactive. ABDOMEN: Soft, nontender, nondistended. NEUROLOGIC: Cranial nerves 2-12 are grossly intact with no focal neuro deficits, 5/5 strength in bilateral upper and lower extremities. SKIN: Warm and dry. No rashes or lesions noted. ASSESSMENT: 1. Hip fracture status post open reduction and internal fixation. 2. Developmental delay with Down syndrome. 3. Multiple medical comorbidities. 4. Alterations in activities of daily living. PLAN: 1. Admission to inpatient rehabilitation to facilitate safe discharge home. 2. PT, OT, speech, language, case management, nursing and HIMS to make evaluations and recommendations. 3. Team weekly and plan of care . 4. . By: [id number] Clements DO /maylin
--- NOTE | ~2018-08-01 | PLAN ---
[facility] [address] [place] [address] REHAB UNIT PLAN OF CARE Name: NORMANSANG Martita Room: [address] IN [facility].#: [id number] Admission: 08/01/18 Attend Phys: Anupama Clements DO Discharge: Date of : 58 Report #: [id number] THIS REPORT FOR: //name// CC: Swati Clements This is a 58-year-old male known from previous consultation and admission to inpatient rehabilitation to facilitate safe discharge home, status post left subtrochanteric displaced femur fracture, closed from 07/21/2018, date of surgery 07/22/2018, with developmental disability, needs in physical and occupational therapy as well as speech language pathology. He does have supportive family and accessible home. He does live with his father and brother. His previous level of function was modified independent with activities of daily living. Current level of function is minimum assistance of 1-2 depending on therapy, activity and time of day. He is ambulating 100 feet with a front-wheeled walker with reminders and cues on hip precautions. He does have mild impairment of comprehension, expression, social interaction, problem solving and memory. MEDICAL PROGNOSIS: Good. REHABILITATION PROGNOSIS: Good. Estimated length of stay is 5-6 days with discharge disposition to the home setting. Physical therapy will see the patient 60-90 minutes per day, 5 days per week, working on upper and lower body strength, balance, coordination and navigation. Occupational therapy will work with the patient 60-90 minutes per day, 5 days per week, working on upper and lower body strength, balance, coordination, navigation, bathing, dressing, and toileting. Speech language pathology will work with the patient 30-90 minutes per day, 5 days per week, working on comprehension, expression, memory and social interaction. This is an overall plan of care, it may change from time to time and we will team weekly and make changes to plan of care as needed. By: [id number] Clements DO /maylin
[~2018-08-01 17:52] MED LIST changes: +ASPIRIN325 PO; +COLACE 100 MG100 MG PO; +FIBERCON CHEWA625 MG PO; +GAS RELIEF80 MG PO; +HYDROCODON-ACE1 EAC7 PO; +IBUPROFEN 200200 M1 PO; +METAMUCIL PACK3.4 GM PO; +MIRALAX17 GM PO; +OXYCODONE HCL 55 MG PO; +REGLAN 10 MG TA10 MG PO; +XARELTO10 MG PO
[2018-08-01 20:00] VITALS: BP 111/66
--- NOTE | 2018-08-01 23:00 | NUR ---
PATIENT ARRIVED PER WHEELCHAIR FROM ROOM 310 AT 2049. A/O X 4. ORIENTED TO ROOM. DEVELOPMENTALLY CHALLENGED BUT ABLE TO MAKE NEEDS KNOWN AND COMMUNICATES EFFECTIVELY. VERY SWEET DISPOSITION. DENIES DISCOMFORT. TOOK MEDICATIONS WHOLE WITH WATER. DECLINED OFFER OF A SNACK. WHEN ASKED WHAT HIS DESIRE FAR CODE STATUS PATIENT STATES HE DIDN'T KNOW HOW TO ANSWER THAT AND TO ASK HIS BROTHER. IN PATIENTS RECORDS THERE WAS A STATEMENT THAT THE PATIENT'S BROTHER STATES THAT THE PATIENT IS TO BE A DNR AND THAT HE WILL TRY TO FIND THE PAPERWORK. PATIENT'S BOTTOM IS PINK. INFORMED IN REPORT THAT PATIENT IS OCCASIONALLY INCONTINENT OF STOOL AND THAT FUNGAL CREAM FROM THE RED TOP WAS BEING APPLIED TO HIS BOTTOM. NO OPEN AREAS SEEN. PATIENT HAS FREQUENT STOOLS DUE TO COLITIS. PATIENT PREFERS TO VOID PER TOILET VERSUS USING THE URINAL. AMBULATES TO THE TOILET WITH SBA, GAITBELT, WALKER. DOES NEED MINIMAL ASSIST WITH GETTING FROM SITTING TO STANDING.
[2018-08-02 04:26] LABS: HEMATOCRIT 27.7 % (42.0-52.0); HEMOGLOBIN 9.2 gm/dL (14.0-18.0); MCH 27.8 pg (26.0-34.0); MCHC 33.2 g/dL (28.0-37.0); MCV 83.7 fL (80.0-100.0); MPV 8.7 fl. (7.2-11.1); RBC 3.3 mil/uL (4.50-6.00); RDW-CV 16.5 % (10.5-14.5); WBC 5.4 thou/uL (4.0-11.0)
[2018-08-02 04:45] LABS: CALCIUM 8.1 mg/dL (8.5-10.1); CREATININE 0.9 mg/dL (0.6-1.3); POTASSIUM 3.3 mmol/L (3.5-5.1)
--- NOTE | 2018-08-02 05:39 | NUR ---
RESTED QUIETLY. CALLED X TWO TO GO TO THE BATHROOM TO VOID. HAD LOOSE STOOL X ONE. HOURLY ROUNDING IN PROGRESS.
[2018-08-02 08:00] VITALS: BP 116/63
--- NOTE | 2018-08-02 12:24 | NUR ---
Nutrition: Consult for poor appetite. Per RN, pt doesn't like eggs, but he is eating well otherwise. Wt stable, 223#. Hx developmental delays. RX: psyllium, albuterol. Soft/fiber restricted diet. BG 125, alb 3, K+ 3.3. Low risk.
--- NOTE | 2018-08-02 16:48 | NUR ---
INITIAL ASSESSMENT: PATIENT ADMITTED TO THE ACUTE INPATIENT REHAB UNIT 08/01/18 WITH A DIAGNOIS OF LEFT HIP FX. PATIENT ALERT AND ORIENTED, BUT IS DEVELOPMENTALLY DELAYED (AGED 10-12 PER H&P). PATIENT HAS A GUARDIAN HIS FATHER AND BROTHER NIKOLAY ([phone]). CRUZ REQUEST THAT HE BE CONTACTED FOR ANY QUESTIONS OR CONCERNS AT HIS FATHER IS OLDER AND LA POSTA. PATIENT RESIDES WITH HIS FATHER, AND THE PLAN IS FOR THE PATIENT TO RETURN HOME WITH HIS FATHER AT D/C. PRIOR TO ADMISSION PATIENT ABLE TO BATHE AND DRESS HIMSELF INDEPENDENTLY. PATIENT RECIEVES M.O.W. AND HIS BROTHER PROVIDES OTHER MEALS NEEDED. PATIENT HAS A WALKER AT HOME THAT BELONGED TO HIS MOTHER, BUT MAY NEED A NEW WALKER AT D/C. PATIENT HAS NO HX OF HH OR SNF. PATIENT'S HOME HAS 5 STEPS TO THE GARAGE ENTRY AND 14 STEPS TO THE BASEMENT WHERE HIS USUALLY WATCHES T.V. AND CARES FOR HIS PET BIRDS. PATIENT AND HIS BROTHER CRUZ WERE ORIENTED TO THE ROLE OF CM, REHAB UNIT, RESIDENT'S RIGHTS INFO, AND TEAM CONFRENCE. CM WILL REMAIN AVIALABLE TO ASSIST AND FOLLOW NEEDED.
--- NOTE | 2018-08-02 17:58 | NUR ---
ASSUMMED CARE OF PT AT 0730, PT ALERT AND ORIENTED, PT TRANSFERS WITH SBA, GB AND WALKER, PT TAKING FOOD AND FLUIDS WELL, VOIDS PER TOILET, LARGE BM THIS SHIFT, PT HAS SOME SMEARING INCONTINENCE OF STOOL, WEARS BRIEF, RED/DRY SCALY SKIN ON BUTTOCKS, OINTMENT APPLIED, DRESSING TO LEFT LEG INTACT, PT PARTICIPATED IN ALL THERAPIES, DENIED PAIN, AMBULATED TO DININGROOM FOR LUNCH, UP IN CHAIR WITH LEGS ELEVATED, HOURLY ROUNDING COMPLETED, ASSESSMENT COMPLETE, WILL CONTINUE TO MONITOR
[2018-08-02 20:00] VITALS: BP 111/61
--- NOTE | 2018-08-03 01:32 | NUR ---
ASSUMED CARE AT 1930. PATIENT RESTING IN RECLINER UNTIL AROUND 1999. WALKED FROM RECLINER INTO JONES AND TO TOILET. HAD VERY SOFT BM PER TOILET. WEARS PULLUPS WITH SET UP. AF MOISTURE BARRIER CREAM APPLIED TO BILAT BUTTOCKS WHICH HAVE DRY PINK SCALY AREAS. DOES OWN HYGIENE AND CLOTHING ADJUSTMENTS. ABLE TO GET BOTH LEGS INTO BED. MOVES SELF IN BED. DSSG TO LT LEG C/D/I. TAKES PILLS WHOLE WITHOUT DIFF. DENIES PAIN. HOURLY ROUNDS CONTINUE. BED ALARM ON. CALL LITE IN REACH.
--- NOTE | 2018-08-03 06:43 | NUR ---
SLEPT MOST OF THE NIGHT. TURNS SELF. UP TO VOID AND HAD BM ONCE AFTER GOING TO BED. NO C/O PAIN. CALL LITE IN REACH. BED ALARM ON. HOURLY ROUNDS CONTINUE.
[2018-08-03 07:30] VITALS: BP 86/40
--- NOTE | 2018-08-03 17:06 | NUR ---
ASSUMMED CARE OF PT AT 0730, PT ALERT AND OPRIENTED, PT TRANSFERS WITH SBA ,GB WALKER, TAKING FOOD AND FLUIDS WELL, DENIES PAIN, DRESSING TO LEFT THIGH/HIP C/D/I, AMBULATED TO DININGROOM FOR LUNCH, PARTICIPATED IN ALL THERAPIES, HOURLY ROUNDING COMPLETED, UP IN CHAIR ALL SHIFT, ASSESSMENT COMPLETE, WILL CONTINUE TO MONITOR.
[2018-08-03 20:00] VITALS: BP 115/61
--- NOTE | 2018-08-04 05:28 | NUR ---
ASSUMED CARE AT 1930. PATIENT RESTED IN RECLINER WITH LEGS ELEVATED UNTIL AROUND 1999. VOIDS PER TOILET. HAS HAD TWO EPISODES OF LOOSE STOOLS WHICH HE SAYS IS NORMAL THROUGH THE NIGHT. HE SAYS HE TAKES "ANTI DIARRHEAL" EVERY NIGHT AT BEDTIME THAT YOU GET AT [employer] OR [facility], IT'S A GREEN PILL AND THINKS IT'S IMMODIUM. TAKES PILLS WITHOUT DIFF. DOES OWN CARES. UP WITH STEADYING ASSIST WHILE RISING ONCE, BUT SBA AFTER HE COMPLETELY RISES, GAIT BELT AND WALKER, WBAT LLE. ABLE TO DON AND DOFF PULLUPS WITH SETUP. DSSG TO LT HIP C/D/I. NO C/O PAIN. HOURLY ROUNDS CONTINUE. BED ALARM ON. CALL LITE IN REACH.
[2018-08-04 08:18] VITALS: BP 103/59
--- NOTE | 2018-08-04 15:47 | NUR ---
ASSUMED CARE AT 0730. ALERT ORIENTED PLEASANT COOPERATIVE. HX OF FX L HIP WBAT LLE. TRANSFERS WITH SBA G BELT WALKER FROM RECLINER AND AMBULATES TO BR HAD LOOSE STOOLS X 2 AND VOIDED. ABLE TO DO HYGEINE AND CLOTHING ADJUSTMENTS. DRESSING C/D/I L HIP. USES CALL LIGHT APPROPRIATELY FOR ASSIST. APPETITE GOOD TAKES MEDS WITHOUT DIFFICULTY. HAD FAMILY VISITORS THIS AFTERNOON. DENIES PAIN OR CONCERNS. TO DR FOR MEALS.
[2018-08-04 20:00] VITALS: BP 118/69
--- NOTE | 2018-08-05 05:00 | NUR ---
ASSUMED CARE AT 1920. ALERT AND ORIENTED. PLEASANT. LEFT HIP FRACTURE. WBAT LLE. DENIED ANY PAIN. DRSG TO LEFT HIP INTACT. MIN ASSIST WITH GAIT BELT AND WALKER. UP TO BATHROOM. DOES OWN CARES. HAS HAD SMALL LOOSE STOOLS. SLEPT MOST OF THE NIGHT. USED CALL LIGHT APPROPRIATELY. BED ALARM ON.
[2018-08-05 07:38] VITALS: BP 87/59
--- NOTE | 2018-08-05 15:00 | NUR ---
ASSUMED CARE AT 0730. ALERT ORIENTED PLEASANT COOPERATIVE. HX OF L HIP FX WBATLLE. DRESSING C/D/I L HIP. RATES PAIN AT A 2 DENIES NEED FOR PRN MEDS. TRANSFERS WITH SBA G BELT WALKER AMBULATES TO TOILET AND DR WITHOUT DIFFICULTY. ABLE TO DO HYGEINE AFTER BM AND CLOTHING ADJUSTMENTS. PARTICIPATING IN THERAPIES THROUGHOUT THE DAY. APPETITE GOOD FEEDS SELF AND TAKES MEDS WITHOUT DIFFICULTY. USES CALL LIGHT APPROPRIATELY FOR ASSISTANCE.
--- NOTE | 2018-08-05 15:39 | NUR ---
I have reviewed the documentation by TESFAYE ELMORE from TODAY to 08/05/18 and I concur with it. JONATHAN CHING
[2018-08-05 19:20] VITALS: BP 95/62
--- NOTE | 2018-08-05 19:20 | NUR ---
SITTING UP IN RECLINER WATCHING TV. AMBULATED IN JONES WITH SBA, GAITBELT, WALKER. STOPPED AT NURSES'S DESK AND VISITED WITH NURSES. DENIES DISCOMFORT. LEFT HIP DRESSING DRY/INTACT. DECLINED OFFER OF A SNACK.
--- NOTE | 2018-08-06 05:53 | NUR ---
RESTED QUIETLY. NO COMPLAINTS VOICED. UP X ONE DURING THE NIGHT TO THE BATHROOM AND HAD A LOOSE STOOL. HOURLY ROUNDING IN PROGRESS.
[2018-08-06 07:15] VITALS: BP 116/60
--- NOTE | 2018-08-06 15:28 | NUR ---
I have reviewed the documentation by TESFAYE ELMORE from TODAY to 08/06/18 and I concur with it. JONATHAN CHING
--- NOTE | 2018-08-06 16:08 | NUR ---
ASSUMMED CARE OF PT AT 0730, PT ALERT AND ORIENTED,TRANSFERS WITH SBA, GB WALKER, AMBULATED TO DININGROOM FOR LUNCH, UP IN CHAIR ALL SHIFT, PT DENIES PAIN, TAKING FOOD AND FLUIDS WELL, VOIDS PER TOILET, DRESSING TO LEFT HIP/THIGH C/D/I, PARTICIPATED IN ALL THERAPIES, HOURLY ROUNDING COMPLETED, ASSESSMENT COMPLETE WILL CONTINUE TO MONITOR.
--- NOTE | 2018-08-06 17:38 | NUR ---
I have reviewed the documentation by YULY KERR from 08/06/18 to 08/06/18 and I concur with it. SIENNA, AMIRAH
[2018-08-06 19:30] VITALS: BP 108/57
--- NOTE | 2018-08-06 19:30 | NUR ---
SITTING UP IN RECLINER WITH LEGS ELEVATED WATCHING TV AND DRAWING. DENIES DISCOMFORT.
[2018-08-07 04:24] LABS: ABSOLUTE EOSINOPHILS 0.2 thou/uL (0.0-0.7); ABSOLUTE LYMPHOCYTES 1.2 thou/uL (0.8-5.3); ABSOLUTE MONOCYTES 0.6 thou/uL (0.0-1.2); ABSOLUTE NEUTROPHILS 2.9 thou/uL (1.6-8.1); BASOPHILS 0.6 %; EOSINOPHILS 3.3 %; HEMATOCRIT 28.8 % (42.0-52.0); HEMOGLOBIN 9.7 gm/dL (14.0-18.0); LYMPHOCYTES 24.1 %; MCH 28.3 pg (26.0-34.0); MCHC 33.8 g/dL (28.0-37.0); MCV 83.7 fL (80.0-100.0); MONOCYTES 12.1 %; MPV 9.2 fl. (7.2-11.1); NUCLEATED RBCS 0 /100WBC; PLATELET COUNT* 230 thou/uL (150-400); POLYS 59.9 %; RBC 3.44 mil/uL (4.50-6.00); RDW-CV 16.1 % (10.5-14.5); WBC 4.8 thou/uL (4.0-11.0)
[2018-08-07 04:35] LABS: CALCIUM 8.5 mg/dL (8.5-10.1); CREATININE 0.9 mg/dL (0.6-1.3); MAGNESIUM 1.6 mg/dL (1.8-2.4); POTASSIUM 3.8 mmol/L (3.5-5.1)
--- NOTE | 2018-08-07 05:12 | NUR ---
RESTED WELL UNTIL AWAKENED BY LAB. AMBULATED TO THE BATHROOM WITH SBA, GAITBELT, WALKER. DOES OWN HYGIENE AND CLOTHING ADJUSTMENTS. WEARS PULL UPS FOR OCCASIONAL BOWEL INCONTIENCE. TYLENOL GIVEN FOR COMPLAINT OF LEFT HIP PAIN WITH RELIEF. PATIENT WORRIED ABOUT HIS ELDERLY FATHER BECAUSE HE PROMISED HIS MOTHER HE WOULD LOOK AFTER HIS FATHER. WORDS OF ENCOURAGEMENT OFFERED. HOURLY ROUNDING IN PROGRESS.
[2018-08-07 08:08] VITALS: BP 105/64
--- NOTE | 2018-08-07 13:41 | NUR ---
SW met with pt brother, pt father, and pt to review team conference summary and plan for pt to dc home with father on Sunday and services to follow. SW explained team's recommendation for pt to have supervision at all times. Pt father said he would make sure he was available or someone was with pt at all times. Pt brother was adamant about pt having assistance when needed and really encouraged pt and pt father to give away pt birds. Pt and pt family agreeing to follow up with removing the birds from the home. KARISSA discussed with pt brother that if pt wasn't able to have / supervision at home, there may be other living options or hired assistance necessary. Pt brother refusing retirement for pt and plans to be able to have pt home with pt father and pt brother will continue to check in on both pt and pt father as needed. SW to continue to follow to assist with safe dc planning.
--- NOTE | 2018-08-07 15:03 | NUR ---
I have reviewed the documentation by TESFAYE ELMORE from TODAY to 08/07/18 and I concur with it. JONATHAN CHING
--- NOTE | 2018-08-07 16:49 | NUR ---
I have reviewed the documentation by YULY KERR from 08/07/18 to 08/07/18 and I concur with it. SIENNA, AMIRAH
--- NOTE | 2018-08-07 17:10 | NUR ---
PT HAS PARTICIPATED WITH THERAPIES AND CALLS FOR ASSIST NEEDED. PT AMBULATES WITH WALKER,GAITBELT AND MIN ASSIST OF 1. PT ENJOYS EATING MEALS IN DINNINGROOM.PT VOIDING WELL,ASSISTED TO BATHROOM.PT DENIES NEED FOR PAIN MEDICATION.DRESSING CHANGED AFTER SHOWER THIS AFTERNOON DUE TO BECOMMING WET.HOURLY ROUNDING CONTINUES.
[2018-08-07 19:45] VITALS: BP 109/57
--- NOTE | 2018-08-08 01:57 | NUR ---
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 BED ALARM PUT ON @ 2099.WANTS LIGHT IN BATHROOM ON ALL NIGHT.ON HOURLY ROUNDS.
--- NOTE | 2018-08-08 05:24 | NUR ---
SLEEPING SINCE 2199 & SLEPT GOOD ALL NIGHT.AWAKE 2X @ 2300 & 0400-FOR BRP. BRP W/ SBA X3.TWICE HAD LARGE BM'S @ 1948 & 0325.REFUSED HS SNACK.
[2018-08-08 08:00] VITALS: BP 104/56
--- NOTE | 2018-08-08 10:58 | NUR ---
I have reviewed the documentation by YULY KERR from 08/08/18 to 08/08/18 and I concur with it. DESIRE BURGOS
--- NOTE | 2018-08-08 19:32 | NUR ---
PT HAS PARTICIPATED WITH THERAPIES AND CALLS TO AMBULATE WITH SBA OF 1 WITH WALKER AND GAITBELT ON. ORTHO HAS SEEN PT THIS AM AND ORDERS WRITTEN FOR NORM TO BE REMOVED ON SUNDAY BEFORE DISCHARGE. NORM ARE OPEN TO AIR PER ORTHO AND ARE INTACT WITH NO REDNESS OR DRAINAGE NOTED.PT CALLS FOR ASSIST NEEDS AND REMAINS ALERT AND ORIENTATED AND DENIES PAIN. HOURLY ROUNDING CONTINUES.
[2018-08-08 19:35] VITALS: BP 105/74
--- NOTE | 2018-08-08 19:35 | NUR ---
SITTING UP IN RECLINER WATCHING TV. DENIES DISCOMFORT. AMBULATED TO THE BATHROOM WITH JESSE GAITBELT WALKER. HAD A BROWN LIQUID STOOL. DID OWN HYGIENE AND CLOTHING ADJUSTMENT. AMBULATED FROM ROOM TO WINDOW THEN TO THE NURSES STATION THEN BACK TO HIS ROOM WITH PINKY MOLINABELT WALKER. STOPPED BY NURSES STATION TO TO SAY "HI" TO ANOTHER RN.
--- NOTE | 2018-08-09 05:48 | NUR ---
UP X ONE DURING THE NIGHT TO THE BATHROOM AND HAD ANOTHER LIQUID BROWN STOOL. NO COMPLAINTS VOICED. HOURLY ROUNDING IN PROGRESS.
[2018-08-09 08:13] VITALS: BP 110/63
--- NOTE | 2018-08-09 10:00 | NUR ---
SW called and spoke with pt brother about recommendation for family training. Scheduled family training for today at 11:30 and informed therapists.
--- NOTE | 2018-08-09 14:37 | NUR ---
ASSUMED CARE AT 0730. ALERT ORIENTED PLEASANT COOPERATIVE. HX OF L HIP FRACTURE WBATLLE. 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 NORM INTACT NO DRAINAGE. TRANSFERS WITH SBA G BELT WALKER AMBULATES TO BR VOIDS HAD BMS LOOSE AND IS ABLE TO DO HYGEINE AND CLOTHING ADJUSTMENTS. FEEDS SELF AND TAKES MEDS WITHOUT DIFFICULTY APPETITE GOOD. DENIES PAIN OR CONCERNS. USES CALL LIGHT APPROPRIATELY FOR ASSISTANCE. MOVED TO ROOM 330 WITH BELONGINGS AT 1300. PARTICIPATING IN THERAPIES THROUGHOUT THE DAY. DAD AND BROTHER HERE THIS A.M. FOR FAMILY TRAINING.
--- NOTE | 2018-08-09 16:21 | NUR ---
I have reviewed the documentation by TESFAYE ELMORE from TODAY to 08/09/18 and I concur with it. JONATHAN CHING
[2018-08-09 20:00] VITALS: BP 130/64
--- NOTE | 2018-08-09 23:29 | NUR ---
ASSUMED CARE AT 1930. PATIENT RESTING IN RECLINER UNTIL AROUND 2099. VOIDS PER TOILET, HAS LOOSE BM EACH TIME. HAS HX OF ULCERATIVE COLITIS. DOES OWN HYGIENE AND CLOTHING ADJUSTMENTS. 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 FAMILY LEFT AROUND 1914. TAKES PILLS WHOLE WITHOUT DIFF. SLEEPING IN REGULAR BED WITH SIDE RAIL FOR ASSIST. DENIES PAIN. CALL LITE IN REACH. HOURLY ROUNDS CONTINUE. USES CALL LITE WELL.
--- NOTE | 2018-08-10 05:52 | NUR ---
SLEPT MOST OF THE NIGHT. TURNS SELF. VOIDS PER TOILET. DOES OWN CARES. NO C/O PAIN. SLEEPING ON REGULAR BED WITH ONE SIDERAIL, PRIMARILY TO HELP WITH RISING FROM BED. HOURLY ROUNDS CONTINUE. CALL LITE IN REACH.
[2018-08-10 07:00] VITALS: BP 102/60
[2018-08-10 08:23] LABS: CALCIUM 8.8 mg/dL (8.5-10.1); CREATININE 0.9 mg/dL (0.6-1.3); MAGNESIUM 1.7 mg/dL (1.8-2.4)
--- NOTE | 2018-08-10 17:58 | NUR ---
PATIENT HAS BEEN ALERT AND ORIENTED X 4, MOD ASSIST IN ROOM. TO MAIN DINNING AREA FOR MEALS. REMOVED NORM PER DR REQUEST TO LEFT HIP. WILL CONT. TO MONITOR SITES.
[2018-08-10 20:00] VITALS: BP 110/59
--- NOTE | 2018-08-11 05:05 | NUR ---
ASSUMED PT CARE AT 1930. PT ALERT AND ORIENTED X4, POLITE AND COOPERATIVE WITH CARES. PT SITTING UP IN RECLINER WATCHING TELEVISION AT SHIFT CHANGE. VOIDS PER TOILET, DOES OWN PERICARES. STOOL X1 THIS SHIFT. NORM TO LEFT LEG REMOVED ON DAY SHIFT. TOP SITE COVERED WITH DRESSING, C/D/I. OTHER TWO SITE OPEN TO AIR, NO S/S OF INFECTION. DENIES PAIN. TAKES PILLS WHOLE WITHOUT DIFFICULTY. PT SLEEPING IN REGULAR BED WITH ONE SIDE RAIL. USES CALL LIGHT APPROPRIATELY. UP SEVERAL TIMES TO VOID WITH SBA, GAIT BELT AND WALKER, WBAT TO LEFT LEG. CALL LIGHT WITHIN REACH. HOURLY ROUNDING IN PROGRESS, WILL CONTINUE TO MONITOR.
[2018-08-11 07:30] VITALS: BP 93/56
[2018-08-11 20:00] VITALS: BP 111/65
[2018-08-12] VITALS (8 sets, daily range): BP systolic 109–111; BP diastolic 63–65
--- NOTE | 2018-08-12 01:55 | NUR ---
ASSUMED CARE @ 1919-08/11-SUNDAY.SITS IN RECLINER VISITING W/ BROTHER & HIS .CHAIR ALARM ALREADY ON @ 1919.PATIENT IN 320 PLAYED COMPUTER GAME W/ PATIENT @ 1999 X 15 MIN.AMBULATED IN HALLWAY @ 0 W/ GB & WALKER W/ SBA W/ FILING CLERK.WBAT LEFT LE.ON HOURLY ROUNDS.FILING CLERK DOING ODD HOUR ROUNDS.
[2018-08-12] MEDS ORDERED: ASPIRIN325 PO (03:30)
[2018-08-12] MEDS ORDERED: MAGOX 400400 MG PO (03:32)
--- NOTE | 2018-08-12 05:25 | NUR ---
SLEEPING SINCE 0000-08/12-SUNDAY.SLEPT GOOD ALL NIGHT.BRP W/ SBA X3.TOOK ALL ICED TEA HS SNACK.FOR DISCHARGE TODAY 08/12-SUNDAY.
--- NOTE | 2018-08-12 11:32 | NUR ---
Pt to dc home with father and brother support today and HH services to follow. SW previously discussed HH options with pt brother and pt/family preference for [facility] as they wanted to try something different then they've had in the past. SW faxed referral and orders for HH notably addition of Social Work services to provide more community resources and evaluate safety of home situation and resource for possible alternative living arrangement in the near future. Pt brother was reluctant to begin this process of discussing pt/father moving out of current home situation immediately at [place]. Pt has use of a rolling walker, pt brother said that there was no need for a new RW. Pt brother and father to complete FT today at 1 pm and then provide pt ride home. [facility] [phone] fax [phone]
--- NOTE | 2018-08-12 14:00 | NUR ---
ASSUMED CARE AT 0730. ALERT ORIENTED PLEASANT COOPERATIVE. HX OF L HIP FX WBATLLE. DENIES PAIN OR CONCERNS. USES CALL LIGHT APPROPRIATELY FOR ASSISTANCE. ABLE TO DO HYGEINE AND CLOTHING ADJUSTMENTS. HAS HAD BMS AND VOIDS IN TOILET. FEEDS SELF AND TAKES MEDS WITHOUT DIFFICULTY. PARTICIPATING IN THERAPIES. FAMILY HERE FOR MORE FAMILY EDUCATION BEFORE D/C. PT. FAMILY VERBALIZED UNDERSTANDING OF D/C INSTRUCTIONS. ALLOWED TIME FOR QUESTIONS. DISCHARGED AT 1345 WITH FAMILY PER W/C WITH BELONGINGS TO HOME WITH HOME HEALTH.
== END 2018-08-12 13:45 | disposition home health service (06) | DRG 536 ==
LOC: M.REH 17:52
PROVIDERS: Family Medicine; ADMIT Physical Medicine & Rehabilitation
DX: S72.002A Fracture of unspecified part of neck of left femur, initial encounter for closed fracture (principal); K56.609 Unspecified intestinal obstruction, unspecified as to partial versus complete obstruction; D62 Acute posthemorrhagic anemia; K56.699 Other intestinal obstruction unspecified as to partial versus complete obstruction; W19.XXXA Unspecified fall, initial encounter; Z96.652 Presence of left artificial knee joint; E87.6 Hypokalemia; E83.42 Hypomagnesemia; Z88.2 Allergy status to sulfonamides; Z88.8 Allergy status to other drugs, medicaments and biological substances; Q90.9 Down syndrome, unspecified; Z90.49 Acquired absence of other specified parts of digestive tract; Y93.89 Activity, other specified; Y92.89 Other specified places as the place of occurrence of the external cause; Y99.8 Other external cause status; Z88.6 Allergy status to analgesic agent